=== PATIENT | male | born 1970 | race Two or more races ===

== ENCOUNTER 2022-02-26 19:09 | Emergency (ER) | payer OTHER, SELFPAY ==
--- NOTE | ~2022-02-26 | CT_ITS ---
EXAMINATION: CT ABDOMEN AND PELVIS WITHOUT CONTRAST CLINICAL INFORMATION: Left lower quadrant pain. COMPARISON: None. TECHNIQUE: Multidetector volumetric imaging was performed from the superior aspect of the liver through the pubic symphysis. Sagittal and coronal reformatted images were obtained on the technologist's workstation. This CT examination was performed using dose optimization techniques as appropriate, variously including the following: *Automated exposure control *Adjustment of mA and/or kV according to patient size (this includes techniques or standardized protocols for targeted exams where dose is matched to indication/reason for exam; i.e. extremities or head) *Use of iterative reconstruction technique DLP: 757 mGy-cm FINDINGS: Evaluation is degraded due to motion. LUNG BASES: No focal consolidation or pleural effusion. LIVER, GALLBLADDER, AND BILIARY TREE: Limited noncontrast evaluation of the liver without discrete focal lesion. Cholelithiasis. No significant wall thickening or pericholecystic inflammatory changes to suspect acute cholecystitis. PANCREAS: Limited noncontrast examination, unremarkable. SPLEEN: Limited noncontrast examination, unremarkable. ADRENAL GLANDS: No adrenal mass. KIDNEYS AND URETERS: Limited noncontrast examination. No nephrolithiasis or hydronephrosis. No significant perinephric fat stranding. BLADDER: There is some tenting of the superior bladder into the sigmoid colon with asymmetric thickening of the superior wall of the urinary bladder (sagittal images 59 through 63, series 6). No intraluminal air or calculi. GASTROINTESTINAL TRACT: There is significant wall thickening of the sigmoid colon with surrounding fat stranding and small amount of free fluid. There is a background of diverticulosis. The stomach and the small bowel are nondilated. No evidence of bowel obstruction. Normal appendix. ABDOMINAL WALL: Small bilateral fat-containing inguinal hernias. LYMPH NODES: No pathologically enlarged lymph nodes by CT short axis size criteria. VASCULAR: Limited noncontrast examination. Abdominal aorta is of normal diameter. PELVIC VISCERA: A few coarse prostatic calcifications are seen. OSSEOUS STRUCTURES: No acute or aggressive appearing osseous abnormalities. CT/CT abdomen pelvis wo IV con IMPRESSION: Findings are most suggestive of acute sigmoid diverticulitis. However, after resolution of the acute findings, correlation with a colonoscopy is recommended to ensure the absence of underlying lesions, if not already recently obtained. There is some distortion and asymmetric wall thickening of the superior wall of the urinary bladder which is likely reactive given nearby inflammatory changes in the sigmoid. There is a thin separatory fat plane and no intraluminal air in the bladder to indicate the presence of a fistulous connection in this examination. Cholelithiasis. No findings to suspect acute cholecystitis.
[2022-02-26 20:52] VITALS: BP 148/103; PULSE 70; RESP 18; TEMP 36.3; O2SAT 97; BMI 30.8
--- NOTE | 2022-02-26 20:52 | ED_ITS ---
HPI - General Adult General Chief complaint: Abdominal Pain <Katie Kuo MD - Last Filed: 02/26/22 20:58> Stated complaint: infection from white blood cells- too many <Katie Kuo MD - Last Filed: 02/26/22 20:58> Time Seen by Provider: 02/26/22 21:34 <Katie Kuo MD - Last Filed: 02/26/22 20:58> Source: patient <Bobby Marti MD - Last Filed: 02/27/22 01:06> Mode of arrival: ambulatory <Bobby Marti MD - Last Filed: 02/27/22 01:06> Limitations: no limitations <Bobby Marti MD - Last Filed: 02/27/22 01:06> History of Present Illness HPI narrative: Patient otherwise healthy been having left lower abdominal pain for last 3 weeks off and or was seen by his PCP outpatient at [facility] had labs done showed elevated WBC count of 14.2 patient was asked to go to the hospital for further evaluation patient was scheduled for CT scan as outpatient. Patient does have fever off and on in the nighttime feel little nauseated with decreased intake last 2 3 days <Bobby Marti MD - Last Filed: 02/27/22 01:06> Related Data Home medications: Previous Rx's Medication Instructions Recorded ciprofloxacin HCl 500 mg tablet 500 mg PO BID #20 tabs 02/27/22 (Cipro) metronidazole 500 mg tablet 500 mg PO TID #30 tabs 02/27/22 tramadol 50 mg tablet 50 mg PO Q6H PRN pain #20 tabs 02/27/22 <Katie Kuo MD - Last Filed: 02/26/22 20:58> Allergies/adverse reactions: Allergies Allergy/AdvReac Type Severity Reaction Status Date / Time Penicillins Allergy Unknown Verified 02/26/22 20:56 <Katie Kuo MD - Last Filed: 02/26/22 20:58> Review of Systems Review of Systems: Yes all other systems are reviewed and are negative <Bobby Marti MD - Last Filed: 02/27/22 01:06> PMFSH Social History Social History: Social History Advance Directives: No Advance Directives Information Provided: No <Katie Kuo MD - Last Filed: 02/26/22 20:58> Physical Exam ED Vital Signs: Vital Signs - 24 hr 02/26/22 20:52 Temperature 97.4 F Pulse Rate 70 Respiratory Rate 18 Blood Pressure 148/103 H Pulse Oximetry 97 Oxygen Delivery Method Room Air BMI result Body Mass Index 30.8 <Katie Kuo MD - Last Filed: 02/26/22 20:58> Vital Signs - 24 hr 02/26/22 20:52 Temperature 97.4 F Pulse Rate 70 Respiratory Rate 18 Blood Pressure 148/103 H Pulse Oximetry 97 Oxygen Delivery Method Room Air BMI result Body Mass Index 30.8 <Bobby Marti MD - Last Filed: 02/27/22 01:06> Appearance: Alert. Oriented X3. No acute distress. Eyes no pallor/ icterus ENT: Pharynx normal. Oral Mucosa moist Neck: Normal inspection. Neck supple. CVS: Normal heart rate and rhythm. Pulses normal. Respiratory: No respiratory distress. Equal air entry bilateral, no wheezing/rales/rhonchi Abdomen: Soft , deep percussion tenderness left lower quadrant no rebound tenderness or guarding Bowel sounds are present, no mass palpable, no CVA tenderness Skin: Skin warm and dry. Normal skin color. Normal skin turgor. Extremities: No lower extremity edema. No calf tenderness Neuro: Oriented X 3. No motor deficit. No sensory deficit.No cerebellar signs , cranial nerves II-XII intact <Bobby Marti MD - Last Filed: 02/27/22 01:06> Course Course Course Narrative: 51M previously had fevers, chills, LLQ pain, had N/V, no diarrhea. Today no symptoms. VS Reviewed GEN: NAD EARS: wnl THROAT: wnl LUNGS: CTAB CVS: RRR ABD: NT/ND Pt reports that he is now eating and drinking and stooling without issues. <Katie Kuo MD - Last Filed: 02/26/22 20:58> Medications Administered Discontinued Medications Generic Name Dose Route Start Last Admin Trade Name Freq PRN Reason Stop Dose Admin Sodium Chloride 1,000 mls @ 999 mls/hr 02/26/22 22:01 02/26/22 23:44 Ns IV 02/26/22 23:01 Infused .Q1H1M ONE Infusion Levofloxacin 500 mg in 100 mls @ 100 mls/hr 02/26/22 22:01 02/27/22 01:05 Levaquin IV 02/26/22 23:00 Infused ONCE ONE Infusion Metronidazole 500 mg in 100 mls @ 100 mls/hr 02/26/22 22:01 02/27/22 00:05 Flagyl IV 02/26/22 23:00 100 mls/hr ONCE ONE Administration <Katie Kuo MD - Last Filed: 02/26/22 20:58> Medications Administered Discontinued Medications Generic Name Dose Route Start Last Admin Trade Name Best PRN Reason Stop Dose Admin Sodium Chloride 1,000 mls @ 999 mls/hr 02/26/22 22:01 02/26/22 23:44 Ns IV 02/26/22 23:01 Infused .Q1H1M ONE Infusion Levofloxacin 500 mg in 100 mls @ 100 mls/hr 02/26/22 22:01 02/27/22 01:05 Levaquin IV 02/26/22 23:00 Infused ONCE ONE Infusion Metronidazole 500 mg in 100 mls @ 100 mls/hr 02/26/22 22:01 02/27/22 00:05 Flagyl IV 02/26/22 23:00 100 mls/hr ONCE ONE Administration <Bobby Marti MD - Last Filed: 02/27/22 01:06> Medical Decision Making Medical Decision Making MDM Narrative: Patient with uncomplicated diverticulitis normal dosing count normal lactic acid level patient received IV dose of Levaquin ER discharge patient home on p.o. Cipro and Flagyl advised to follow with PCP report to the ER if worsening of the pain <Bobby Marti MD - Last Filed: 02/27/22 01:06> Differential Diagnoses: Differential diagnosis (Diverticulitis, colitis, appendicitis, kidney stone, urinary tract infection) Differential Diagnosis: The differential diagnosis associated with the patient?s presentation includes: <Bobby Marti MD - Last Filed: 02/27/22 01:06> Discharge Plan Discharge Clinical Impression: Diverticulitis <Katie Kuo MD - Last Filed: 02/26/22 20:58> Patient Disposition: Home, Self-Care <Katie Kuo MD - Last Filed: 02/26/22 20:58> Instructions: Diverticulitis (ED) <Katie Kuo MD - Last Filed: 02/26/22 20:58> Additional Instructions: Drink plenty of fluids advanced food as tolerated Antibiotic as prescribed Report to the ER if worsening of the pain <Katie Kuo MD - Last Filed: 02/26/22 20:58> Prescriptions: New ciprofloxacin HCl [Cipro] 500 mg tablet 500 mg PO BID Qty: 20 0RF metronidazole 500 mg tablet 500 mg PO TID Qty: 30 0RF tramadol 50 mg tablet 50 mg PO Q6H PRN (Reason: pain) Qty: 20 0RF <Katie Kuo MD - Last Filed: 02/26/22 20:58> Print Language: R[place]an <Katie Kuo MD - Last Filed: 02/26/22 20:58>
[2022-02-26 21:07] LABS: MANUAL DIFF FLAG NO
[2022-02-26 21:14] LABS: Basophils Absolute Auto 0.1 X10*3/uL (0.0-0.2); Basophils Percent Auto 0.5 % (0-2); Eosinophils Absolute Auto 0.4 X10*3/uL (0.0-0.4); Eosinophils Percent Auto 3.7 % (0-4); Hematocrit 41.9 % (42.0-52.0); Hemoglobin 14.1 g/dl (14.0-18.0); Imm Gran Abs Auto 0.09 X10*3/uL (0.00-0.03); Imm Gran Pct Auto 0.9 % (0.0-0.4); Lymphocytes Absolute Auto 2.7 X10*3/uL (1.2-4.9); Lymphocytes Percent Auto 27.9 % (20-40); Mean Corpuscular HGB Conc 33.7 g/dl (31.0-36.0); Mean Corpuscular Hemoglobin 28.4 pg (27.0-33.0); Mean Corpuscular Volume 84.3 fL (80.0-98.0); Mean Platelet Volume 9.1 fL (9.4-12.4); Monocytes Absolute Auto 1.1 X10*3/uL (0.1-1.2); Monocytes Percent Auto 10.8 % (2-11); Neutrophils Absolute Auto 5.5 x10*3/uL (2.0-8.3); Neutrophils Percent Auto 56.2 % (45-73); Platelet Count 313 X10*3/uL (160-400); Red Blood Count 4.97 X10*6/uL (4.60-5.80); Red Cell Distribution Width 12.6 % (11.0-16.0); White Blood Count 9.8 X10*3/uL (4.8-10.8)
[2022-02-26 21:30] LABS: Alanine Aminotransferase 25 U/L (0-40); Albumin Level 4.5 g/dL (3.5-5.0); Alkaline Phosphatase 44 U/L (39-117); Anion Gap 12 (12-20); Aspartate Amino Transferase 24 U/L (5-37); Bilirubin Total 0.6 mg/dL (0.0-1.0); Blood Urea Nitrogen 19 mg/dL (9-16); Calcium 9.3 mg/dL (8.4-10.2); Carbon Dioxide 27 mmol/L (22-29); Chloride 101 mmol/L (96-108); Creatinine Clr Calc Pharmacy 114.7; Estimated Glomerular Filt Rate > 60; Glucose Random 96 mg/dL (60-115); Potassium 4.4 mmol/L (3.3-5.1); Sodium 136 mmol/L (135-145); Total Protein 7.3 g/dL (6.5-8.0)
--- NOTE | 2022-02-26 22:33 | PC.NURSE ---
Orders for antibiotics are in. Spoke to provider, no BC needed at this time.
[2022-02-26] MEDS: 0.9 % Sodium Chloride 1,000 ML 999 ML IV (22:43)
[2022-02-26 23:04] LABS: Lactic Acid 0.6 mmol/L (0.5-2.0)
[2022-02-27] MEDS: levoFLOXacin/D5W 500 MG/100 ML PIGGYBACK 100 MG IV (00:04)
[2022-02-27] MEDS: metroNIDAZOLE/NS 500 MG/100 ML PIGGYBACK 100 MG IV (00:05)
[2022-02-27 00:58] LABS: Appearance Urine Clear; Color Urine Yellow; Glucose Urine UA Negative (Negative); Leukocyte Esterase Urine Negative (Negative); Nitrite Urine Negative (Negative); PH 5.5 (5.0-9.0); Urine Blood Negative (Negative); Urine Ketones Negative (Negative); Urine Protein Negative (Neg-Trace)
== END 2022-02-27 01:36 | disposition home or self-care (01) ==
PROVIDERS: Student in an Organized Health Care Education/Training Program; Emergency Provider Internal Medicine
DX: K57.32 Diverticulitis of large intestine without perforation or abscess without bleeding (principal); R10.32 Left lower quadrant pain; Z79.899 Other long term (current) drug therapy
CPT/HCPCS: 36415; 74176; 80053; 81003; 83605; 85025; 96361; 96365; 96367; 99284; J1956

== ENCOUNTER → 2022-03-04 14:05 | Outpatient (BNVA) | payer OTHER, SELFPAY | PROVIDERS: Visit Provider Physician Assistant Medical | DX: S70.11XA Contusion of right thigh, initial encounter (principal); W22.8XXA Striking against or struck by other objects, initial encounter | CPT/HCPCS: 99202 ==